=== PATIENT | male | born 2000 | race Hispanic/Latino ===

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

== ENCOUNTER 2019-02-03 21:21 | Emergency (ER) | payer BC ==
[2019-02-03] MEDS ORDERED: Bacitracin Zinc 1 Packet ONE ×2 (21:42→21:46)
[2019-02-03] MEDS ORDERED: Adacel (T-DAP) 0.5 ML SYRINGE ONE (21:46)
[2019-02-03] MEDS ORDERED: Amoxicillin/Potassium Clav 875 MG TAB ONE (21:46)
== END 2019-02-03 22:05 ==
LOC: NAV ERS 21:21
DX: S11.95XA Open bite of unspecified part of neck, initial encounter (principal); S41.151A Open bite of right upper arm, initial encounter; S41.051A Open bite of right shoulder, initial encounter; S40.812A Abrasion of left upper arm, initial encounter; Y04.1XXA Assault by human bite, initial encounter; F41.9 Anxiety disorder, unspecified; Z79.899 Other long term (current) drug therapy
CPT/HCPCS: 90471; 90715

== ENCOUNTER 2019-11-23 12:50 | Emergency (ER) | payer BC ==
[2019-11-23] MEDS ORDERED: Bacitracin 1 PK ONE (13:06)
== END 2019-11-23 13:21 ==
LOC: NAV ERS 12:50
DX: S00.81XA Abrasion of other part of head, initial encounter (principal); F41.9 Anxiety disorder, unspecified; Z79.01 Long term (current) use of anticoagulants; Y04.0XXA Assault by unarmed brawl or fight, initial encounter
CPT/HCPCS: 99283

== ENCOUNTER 2020-09-04 17:35 | Emergency (ER) | payer BC | END 2020-09-04 18:28 | LOC: NAV ERS 17:35 | DX: F41.9 Anxiety disorder, unspecified (principal); F17.210 Nicotine dependence, cigarettes, uncomplicated | CPT/HCPCS: 99283 ==